=== PATIENT | male | born 1945 | race Caucasian/White ===

== ENCOUNTER → 2024-06-08 | Outpatient (CLI) | payer MEDICARE ==
[2024-06-08 10:59] LABS: African American GFR (CKD) >90 (>60 ml/min/1.73 sqM); Blood Urea Nitrogen 20 mg/dL (9-20); Non-African American GFR(CKD) 86 (>60 ml/min/1.73 sqM)
--- NOTE | 2024-06-08 13:21 | CT ---
EXAMINATION TYPE: CT urogram wo/w con DATE OF EXAM: 06/08/2024 12:44 PM COMPARISON: None CLINICAL INDICATION: Male, 79 years old with history of R31.0 GROSS HEMATURIA; PHH, GROSS HEMATURIA TECHNIQUE: Urogram with imaging of the abdomen and pelvis. Coronal and sagittal reformats were performed. 2D and 3D reconstructions are performed to assist visualization of the urinary tract on a separate workstat ion. Contrast used:100 ML mL of Isovue 370 with IV Contrast, Oral contrast used: None. CT DLP: 1607.0 mGycm, Automated exposure control for dose reduction was used. FINDINGS: LOWER CHEST: The heart is moderately to markedly enlarged for size. Mitral valve device. Moderate cor onary artery atherosclerosis. Bilateral gynecomastia changes. GENITOURINARY: RIGHT KIDNEY AND URETER: No calculi. Mild to moderate hydroureteronephrosis.. No renal mass or other lesions. Right renal cortical cyst measuring 17 mm. No urothelial lesions: no filling defect, dilatio n, stricture or wall thickening. LEFT KIDNEY AND URETER: No calculi. No hydronephrosis or hydroureter. No renal mass or other lesions. No urothelial lesions: no filling defect, dilation, stricture or wall thickening. URINARY BLADDER: Distended there is a eccentric right bladder wall thickening measuring 5.4 x 2.2 cm covering the right ureteral orifice. There is moderate right REPRODUCTIVE: Prostate is enlarged in size measuring 4.6 cm in transverse dimension. ABDOMEN LIVER: Unremarkable GALLBLADDER AND BILE DUCTS: Unremarkable. PANCREAS: Unremarkable. SPLEEN: Unremarkable. ADRENAL GLANDS: Unremarkable. STOMACH AND BOWEL: . No evidence of bowel obstruction. The appendix is normal. Moderate to large amou nt stool in the colon. PERITONEUM: No evidence of pneumoperitoneum, free fluid, or adenopathy. VASCULATURE: Moderate atherosclerotic calcifications are present throughout the abdominal aorta and i ts branches. No evidence of aortic aneurysm. MUSCULOSKELETAL: No acute osseous abnormalities. Mild disc degeneration changes are present throughou t the thoracolumbar spine. LYMPH NODES: No gross evidence for lymphadenopathy. Nonenlarged retroperitoneal lymph nodes are indet erminate specifically no greater than 1.0 cm in short axis lymph nodes are identified. SOFT TISSUE/ABDOMINAL WALL: Unremarkable IMPRESSION: 1. Right posterior lateral bladder wall mass measuring up to 5.4 cm. This mass results in mild to mo derate right hydroureteronephrosis. 2. Moderate to severe cardiomegaly [facility], , 06/08/2024 1:19 PM
== END | disposition home or self-care (01) ==
LOC: RADCTMAIN 10:21 → EEVIPCON 10:21
PROVIDERS: ATTEND Urology
DX: N13.2 Hydronephrosis with renal and ureteral calculous obstruction (principal); R31.0 Gross hematuria; N32.89 Other specified disorders of bladder; I51.7 Cardiomegaly
CPT/HCPCS: 82565; 84520; 74178; 36415; 74400; Q9967

== ENCOUNTER → 2024-07-01 | Day surgery (SDC) | payer MEDICARE ==
--- NOTE | 2024-06-29 20:56 | P.GSHP ---
History of Present Illness H&P Date: 06/29/24 Chief Complaint: Gross hematuria The patient is an 79-year-old white male with a several month history of intermittent gross hematuria. Urine culture shows no evidence of infection. Urine cytology is suspicious. A CT urogram shows a right sided bladder mass with moderate right hydronephrosis. The patient underwent a Watchman procedure on May 26, 2024 and has been advised to remain on aspirin and Plavix for 6 months. - Cardiovascular Cardiovascular: Reports high blood pressure, Reports irregular heart beat - Genitourinary (Male) Genitourinary: Reports hematuria, Denies dysuria, Denies urinary frequency Past Medical History Past Medical History: Atrial Fibrillation, Cancer, Heart Failure, CVA/TIA, Hyperlipidemia, Hypertension, Seizure Disorder, Thyroid Disorder Additional Past Medical History / Comment(s): cva x2 ,bladder cancer?, has watchman, History of Any Multi-Drug Resistant Organisms: None Reported Past Surgical History: Unable to Obtain Additional Past Surgical History / Comment(s): Su cranietomy, hematoma, artery glued, watchman Past Anesthesia/Blood Transfusion Reactions: No Reported Reaction Smoking Status: Former smoker - Past Family History Father Family Medical History: No Reported History Medications and Allergies Home Medications Medication Instructions Recorded Confirmed Type Atorvastatin [Lipitor] 80 mg PO HS 04/07/24 06/29/24 History Docusate Sodium 100 mg PO DAILY 04/07/24 06/29/24 History Pantoprazole [Protonix] 40 mg PO DAILY 04/07/24 06/29/24 History Potassium Chloride ER [K-Dur 20] 20 meq PO BID 04/07/24 06/29/24 History amLODIPine [Norvasc] 10 mg PO DAILY 04/07/24 06/29/24 History levETIRAcetam [Keppra Oral 1,000 mg PO BID 04/07/24 06/29/24 History Solution] Sacubitril/Valsartan [Entresto 24 1 each PO BID tab 04/15/24 06/29/24 Rx mg-26 mg Tablet] Acetaminophen [Tylenol Arthritis] 650 mg PO Q6H PRN 06/29/24 06/29/24 History Aspirin [Children's Aspirin] 81 mg PO DAILY 06/29/24 06/29/24 History Clopidogrel [Plavix] 75 mg PO DAILY 06/29/24 06/29/24 History Ferrous Sulfate [Feosol] 325 mg PO DAILY 06/29/24 06/29/24 History Allergies Allergy/AdvReac Type Severity Reaction Status Date / Time No Known Allergies Allergy Verified 06/28/24 11:51 Surgical - Exam - General well developed, well nourished, no distress - Respiratory normal respiratory effort - Genitourinary normal penis with no external lesions (You), testicles non-tender - Rectum Rectum: normal sphincter tone, no masses, other (Prostate mildly enlarged and smooth) - Psychiatric oriented to time, oriented to person, oriented to place, speech is normal, memory intact Results - Imaging CT scan - abdomen: report reviewed, image reviewed Assessment and Plan (1) Neoplasm of unspecified behavior of bladder Status: Acute Code(s): D49.4 - NEOPLASM OF UNSPECIFIED BEHAVIOR OF BLADDER SNOMED Code(s): 591750214 (2) Unspecified hydronephrosis Status: Acute Code(s): N13.30 - UNSPECIFIED HYDRONEPHROSIS SNOMED Code(s): 29746196 Plan: Cystoscopy, TURBT, possible right retrograde pyelogram, possible right ureteral stent insertion. The procedure has been reviewed in detail with the patient. He has been made aware of potential risks, which include anesthesia, infection, and bladder perforation. There is a significant risk of hematuria, given that the patient cannot be safely taken off aspirin and Plavix per his retail marketing specialist, Dr. Don Steiner.
[~2024-07-01] MED LIST: FUROSEMIDE 10 MG/ML 2 ML VIAL ONE; GLYCOPYRROLATE 0.2 MG/ML 2 ML VIAL ONE; HYDROmorphone 0.5 MG/0.5 ML SYRINGE IVP PRN; LIDOCAINE 1% (10MG/ML) FOR IV START INTRADERMA PRN; LIDOCAINE 1% INJ 10MG/ML (20 ML MDV) ONE; MIDAZOLAM 2 MG/2 ML VIAL IV PRN; NEOSTIGMINE 1 MG/ML 10 ML VIAL ONE; PHENYLEPHRINE 10 MG/ML VIAL ONE; PROPOFOL 10 MG/ML 20 ML VIAL IV ONE; ROCURONIUM 10 MG/ML (5 ML VIAL) IV ONE; SUCCINYLCHOLINE CHLORIDE 200 MG/10 ML VIAL IV ONE; SUGAMMADEX SODIUM 100 MG/ML SYR IV ONE; fentaNYL (PF) 50 MCG/ML 2 ML AMP IVP PRN; fentaNYL (PF) 50 MCG/ML 2 ML AMP ONE
[2024-07-01] MEDS: IV FLUID CONTINUATION 1,000 ML IV ONE (06:52)
[2024-07-01] MEDS: LACTATED RINGERS 1,000 ML IV SCH (07:13)
[2024-07-01] MEDS: DEXAMETHASONE SOD PHOSPHATE 4 MG/ML 1 ML VIAL IV ONE (07:13)
[2024-07-01] MEDS: ONDANSETRON 4 MG/2 ML VIAL IVP ONE (07:13)
[2024-07-01 07:16] LABS: Basophils # (A) 0.07 10*3/uL (0.00-0.10); Eosinophils # (A) 0.21 10*3/uL (0.04-0.35); Eosinophils % (A) 2.9 %; HCT 36.4 % (39.6-50.0); HGB 11.7 g/dL (13.0-17.0); Lymphocytes # (A) 1.27 10*3/uL (0.90-5.00); Lymphocytes % (A) 17.6 %; MCH 29.7 pg (27.0-32.0); MCHC 32.1 g/dL (32.0-37.0); MCV 92.4 fL (80.0-97.0); Monocytes # (A) 0.73 10*3/uL (0.20-1.00); Monocytes % (A) 10.1 %; Neutrophils # (A) 4.89 10*3/uL (1.80-7.70); Neutrophils % (A) 67.8 %; Platelet Count 292 10*3/uL (140-440); RBC 3.94 10*6/uL (4.40-5.60); RDW 15.5 % (11.5-14.5); WBC 7.21 10*3/uL (4.50-10.00)
[2024-07-01] MEDS: ceFAZolin 2 GM in DEXTROSE 5% IN WATER 50 ML IVPB PRN (07:30)
[2024-07-01 07:53] LABS: ALT 13 U/L (4-49); AST 24 U/L (17-59); African American GFR (CKD) 69 (>60 ml/min/1.73 sqM); Alkaline Phosphatase 132 U/L (38-126); Anion Gap 9 mmol/L; Blood Urea Nitrogen 27 mg/dL (9-20); Calcium 9.3 mg/dL (8.4-10.2); Carbon Dioxide 26 mmol/L (22-30); Chloride 105 mmol/L (98-107); Glucose 120 mg/dL (74-99); Non-African American GFR(CKD) 60 (>60 ml/min/1.73 sqM); Potassium 5.2 mmol/L (3.5-5.1); Sodium 140 mmol/L (137-145); Total Bilirubin 0.6 mg/dL (0.2-1.3); Total Protein 6.8 g/dL (6.3-8.2)
[2024-07-01 09:40] VITALS: TEMP 96.8
--- NOTE | 2024-07-01 09:47 | P.OP ---
Date of Procedure: 07/01/24 Preoperative Diagnosis: Gross hematuria, bladder tumor, right hydronephrosis Postoperative Diagnosis: Same Procedure(s) Performed: Cystoscopy, transurethral resection of bladder tumor (large) Anesthesia: JESÚS Surgeon: Jose Johnson Estimated Blood Loss (ml): 50 IV fluids (ml): 700 Pathology: other (Right posterior bladder wall tumor) Condition: stable Disposition: PACU Indications for Procedure: The patient is an 79-year-old white male with a several month history of intermittent gross hematuria. Urine culture shows no evidence of infection. Urine cytology is suspicious. A CT urogram shows a right sided bladder mass with moderate right hydronephrosis. The patient underwent a Watchman procedure on May 26, 2024 and has been advised to remain on aspirin and Plavix for 6 months. He now comes for cystoscopy with resection of bladder tumor. Operative Findings: Large tumor occupying the majority of the right posterior bladder wall, including the right hemitrigone and extending to the right lateral bladder wall. Although the tumor has a papillary appearance, it is likely muscle invasive. 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 The tumor within the diverticulum was partially resected. Description of Procedure: The patient was taken in the operating room and placed in the dorsal lithotomy position, with his legs supported in Pete stirrups. The external genitalia was prepped and draped sterilely. The [place] urethrotome was used to incise the urethra to 25-Macedonian. The 25-Macedonian ACMI resectoscope sheath was introduced into the bladder. The bladder was inspected. The entire bladder was examined, revealing some clot within the bladder. Papillary tumors covered the majority of the right posterior bladder wall, extending to the right lateral bladder wall. The prostate was visually occluded with a trilobar configuration. Tumor reached the vesical neck but did not extend into the prostatic urethra. The left ureteral orifice appeared normal, and clear urine effluxed from it. The right ureteral orifice was obscured by tumor. Using the bipolar cutting loop, the tumors were resected down to the muscle. The resection bed measured 6 to 8 cm in size. The left ureteral orifice was not resected, as there was no tumor adjacent to it. The right ureteral orifice was not identified. Cephalad to the anticipated area of the right ureteral orifice was a large posterior bladder wall diverticulum which contained papillary tumor. The neck of the diverticulum was resected, allowing the resectoscope to be introduced into the neck of the diverticulum. However, it was evident that the diverticulum was quite large, and it was not felt that complete resection could be safely performed. Therefore, the tumor within the diverticulum was cauterized, attaining adequate hemostasis. The remainder of the resection bed showed excellent hemostasis. There was no evidence of bladder perforation. The Fraud[employer] evacuator was used to remove all of the tissue fragments from the bladder. The resected tissue was saved and sent for pathologic examination. A 20-Macedonian Bender catheter was inserted. The return was essentially clear. Lasix 20 mg was given intravenously at the conclusion of the procedure. At the completion of the procedure, the abdomen was noted to be soft and nondistended. The patient tolerated the procedure well and was taken to the recovery room in stable condition.
[2024-07-01 09:48] VITALS: RESP 16
[2024-07-01 11:55] VITALS: BP 168/76; PULSE 68
== END | disposition home or self-care (01) ==
LOC: OR 06:21
PROVIDERS: ATTEND Urology
DX: C67.9 Malignant neoplasm of bladder, unspecified (principal); N13.30 Unspecified hydronephrosis; I48.91 Unspecified atrial fibrillation; I11.0 Hypertensive heart disease with heart failure; I50.9 Heart failure, unspecified; K21.9 Gastro-esophageal reflux disease without esophagitis; E07.9 Disorder of thyroid, unspecified; Z86.73 Personal history of transient ischemic attack (TIA), and cerebral infarction without residual deficits; Z86.69 Personal history of other diseases of the nervous system and sense organs; Z87.891 Personal history of nicotine dependence; Z79.82 Long term (current) use of aspirin; Z79.02 Long term (current) use of antithrombotics/antiplatelets; Z79.899 Other long term (current) drug therapy
CPT/HCPCS: 52240; 80053; 85025; 88307; J0330; J1100; J2710; J0690; J2405; J2003; J3010; J2704; J2371; J1596; J1938

== ENCOUNTER 2024-07-22 11:28 | Emergency (ER) | payer MEDICARE ==
--- NOTE | 2024-07-22 11:53 | ED ---
Male Urogenital HPI - General Source: patient, family, RN notes reviewed Mode of arrival: ambulatory Limitations: no limitations <Venita Penaloza - Last Filed: 07/22/24 16:33> <Harsha Horowitz - Last Filed: 07/23/24 10:02> - General Chief complaint: Urogenital Stated complaint: Urogenital Time Seen by Provider: 07/22/24 11:37 - History of Present Illness Initial comments: Patient is an 79-year-old male with history of recent bladder tumor resection (07/01) with Dr. Johnson presenting for gross hematuria and dysuria for about 3 days. Patient states that since bladder tumor resection on 07/01 he has had int ermittent hematuria but was getting better until Friday when he noticed that he had hematuria as well as dysuria, frequency, and urgency. He reports mild suprapubic pain only to palpation. He denies fever/chills, nausea/vomiting, chest pain, difficulty breathing, flank pain, melena/hematochezia. (Venita Penaloza) - Related Data Home Medications Medication Instructions Recorded Confirmed Atorvastatin [Lipitor] 80 mg PO HS 04/07/24 07/01/24 Docusate Sodium 100 mg PO DAILY 04/07/24 07/01/24 Pantoprazole [Protonix] 40 mg PO DAILY 04/07/24 07/01/24 Potassium Chloride ER [K-Dur 20] 20 meq PO BID 04/07/24 07/01/24 amLODIPine [Norvasc] 10 mg PO DAILY 04/07/24 07/01/24 levETIRAcetam [Keppra Oral 1,000 mg PO BID 04/07/24 07/01/24 Solution] Acetaminophen [Tylenol Arthritis] 650 mg PO Q6H PRN 06/29/24 07/01/24 Aspirin [Children's Aspirin] 81 mg PO DAILY 06/29/24 07/01/24 Clopidogrel [Plavix] 75 mg PO DAILY 06/29/24 07/01/24 Ferrous Sulfate [Feosol] 325 mg PO DAILY 06/29/24 07/01/24 Previous Rx's Medication Instructions Recorded Sacubitril/Valsartan [Entresto 24 1 each PO BID tab 04/15/24 mg-26 mg Tablet] Ciprofloxacin HCl 500 mg PO Q12H 5 Days #10 tab 07/22/24 Allergies Allergy/AdvReac Type Severity Reaction Status Date / Time No Known Allergies Allergy Verified 07/01/24 06:45 Review of Systems ROS Other: All systems not noted in ROS Statement are negative. Constitutional: Denies: fever, chills Respiratory: Denies: cough, dyspnea Cardiovascular: Denies: chest pain Gastrointestinal: Denies: abdominal pain, nausea, vomiting Genitourinary: Reports: urgency, dysuria, frequency, hematuria Neurological: Denies: weakness <Venita Penaloza - Last Filed: 07/22/24 16:33> ROS Other: All systems not noted in ROS Statement are negative. <Harsha Horowitz - Last Filed: 07/23/24 10:02> ROS Statement: Those systems with pertinent positive or pertinent negative responses have been documented in the HPI. Past Medical History Past Medical History: Atrial Fibrillation, Cancer, Heart Failure, CVA/TIA, Hyperlipidemia, Hypertension, Seizure Disorder, Thyroid Disorder Additional Past Medical History / Comment(s): cva x2 ,bladder cancer?, has watchman, History of Any Multi-Drug Resistant Organisms: None Reported Past Surgical History: Unable to Obtain Additional Past Surgical History / Comment(s): Clyman cranietomy, hematoma, artery glued, watchman, bladder surgery Past Anesthesia/Blood Transfusion Reactions: No Reported Reaction Past Psychological History: No Psychological Hx Reported Smoking Status: Former smoker - Past Family History Father Family Medical History: No Reported History <TremaineVenita - Last Filed: 07/22/24 16:33> General Exam Limitations: no limitations General appearance: alert, in no apparent distress Head exam: Present: atraumatic Eye exam: Present: normal appearance ENT exam: Present: mucous membranes moist, normal external ear exam Respiratory exam: Present: normal lung sounds bilaterally. Absent: respiratory distress, wheezes, rales, rhonchi, chest wall tenderness, accessory muscle use Cardiovascular Exam: Present: regular rate, normal rhythm, normal heart sounds. Absent: systolic murmur, diastolic murmur GI/Abdominal exam: Present: soft, tenderness (Mild suprapubic), normal bowel sounds. Absent: distended, guarding, rebound, rigid Extremities exam: Present: normal inspection, full ROM, normal capillary refill Back exam: Absent: CVA tenderness (R), CVA tenderness (L) Neurological exam: Present: alert, oriented X3 Psychiatric exam: Present: normal affect, normal mood Skin exam: Present: warm, dry, intact <Venita Penaloza - Last Filed: 07/22/24 16:33> Course Vital Signs 07/22/24 07/22/24 11:34 15:40 Temperature 97.4 F L 97.5 F L Pulse Rate 92 74 Respiratory 20 18 Rate Blood Pressure 137/75 136/70 O2 Sat by Pulse 99 96 Oximetry Medical Decision Making - Lab Data Result diagrams: 07/22/24 12:17 07/22/24 12:17 <Venita Penaloza - Last Filed: 07/22/24 16:33> - Lab Data Result diagrams: 07/22/24 12:17 07/22/24 12:17 <Harsha Horowitz - Last Filed: 07/23/24 10:02> - Medical Decision Making Was pt. sent in by a medical professional or institution (, PA, CATEGORY DEVELOPMENT MANAGER, urgent care, hospital, or correction...) When possible be specific @ -No Did you speak to anyone other than the patient for history (EMS, parent, family, police, friend...)? What history was obtained from this source @ -Granddaughter(POA) Did you review nursing and triage notes (agree or disagree)? Why? @ -I reviewed and agree with nursing and triage notes Were old charts reviewed (outside hosp., previous admission, EMS record, old EKG, old radiological studies, urgent care reports/EKG's, correction records)? Report findings @ -Surgery records Differential Diagnosis? @ -Nephrolithiasis, UTI, pyelonephritis, hydronephrosis, renal artery embolism, renal vein thrombosis, cystitis. This is not meant to be an all-inclusive list. EKG interpreted by me (3pts min.). @ -As above X-rays interpreted by me (1pt min.). @ -None done CT interpreted by me (1pt min.). @ -None done U/S interpreted by me (1pt. min.). @ -No hydronephrosis seen What testing was considered but not performed or refused? (CT, X-rays, U/S, labs)? Why? @ -None What meds were considered but not given or refused? Why? @ -None Did you discuss the management of the patient with other professionals (professionals i.e. , PA, CATEGORY DEVELOPMENT MANAGER, lab, RT, psych nurse, social insurance analyst, jewelry sales associate, teacher, senior grants officer, foster care case manager)? Give summary @ -No Was smoking cessation discussed for >3mins.? @ -No Was critical care preformed (if so, how long)? @ -No Were there social determinants of health that impacted care today? How? (Homelessness, low income, unemployed, alcoholism, drug addiction, transportation, low edu. Level, literacy, decrease access to med. care, [facility], rehab)? @ -No Was there de-escalation of care discussed even if they declined (Discuss DNR or withdrawal of care, Hospice)? DNR status @ -No What co-morbidities impacted this encounter? (DM, HTN, Smoking, COPD, CAD, Cancer, CVA, ARF, Chemo, Hep., AIDS, mental health diagnosis, sleep apnea, morbid obesity)? @ -None Was patient admitted / discharged? Hospital course, mention meds given and route, prescriptions, significant lab abnormalities, going to OR and other pert inent info. @ -Patient is an 79-year-old male status post bladder tumor resection on 07/01 with hematuria since Friday. He is reporting hematuria, frequency, urgency, intermittent mild suprapubic pain only to palpation.a CBC, CMP, urinalysis, ultrasound kidney/bladder were obtained. CBC showed hemoglobin 10. CMP: Creatinine 1.27, alkaline phosphatase 143. UA with >182 RBC, 140 WBC. Ultrasound kidney/bladder: Mild right hydronephrosis, debris within bladder lumen, no nephrolithiasis. Case discussed with Dr. Johnson, recommendation to start empiric antibiotics for suspected UTI, patient scheduled for outpatient follow-up. Patient discharged home on 5 days ciprofloxacin 500 mg twice daily. Return precautions discussed including but not limited to inability to urinate, fever/chills. Patient verbalizes an understanding. Recommend follow-up with PCP in 1 to 2 days. Undiagnosed new problem with uncertain prognosis? @ -No Drug Therapy requiring intensive monitoring for toxicity (Heparin, Nitro, Insulin, Cardizem)? @ -No Were any procedures done? @ -No Diagnosis/symptom? @ -Hematuria, UTI Acute, or Chronic, or Acute on Chronic? @ -Acute Uncomplicated (without systemic symptoms) or Complicated (systemic symptoms)? @ -Uncomplicated Side effects of treatment? @ -No Exacerbation, Progression, or Severe Exacerbation? @ -No Poses a threat to life or bodily function? How? (Chest pain, [place], [place], pneumonia, PE, COPD, DKA, ARF, appy, cholecystitis, CVA, Diverticulitis, Homicidal, Suici denise, threat to staff... and all critical care pts) @ -No (Venita Penaloza) I personally saw the patient and performed the critical portion of the service. I discussed the patient care with the resident. I directed management, care planning and final disposition of the patient. This includes, but not limited to, review of all lab work, radiological studies, EKG's, consultations, vital signs, and nursing notes. EKG interpreted by me (3pts min.) @None done X-Rays interpreted by me (1 pt min.) @None CT interpreted by me ( 1pt min.) @None U/S interpreted by me (1 pt min.) @Bladder/renal ultrasound positive for mild right-sided hydronephrosis with debris in the bladder lumen which is likely the bleeding that he has been experiencing since his procedure. (Harsha Horowitz) - Lab Data Lab Results 07/22/24 07/22/24 07/22/24 Range/Units 12:17 12:17 12:17 WBC 8.37 (4.50-10.00) 10*3/uL RBC 3.36 L (4.40-5.60) 10*6/uL Hgb 10.0 L D (13.0-17.0) g/dL Hct 30.7 L (39.6-50.0) % MCV 91.4 (80.0-97.0) fL MCH 29.8 (27.0-32.0) pg MCHC 32.6 (32.0-37.0) g/dL Plt Count 312 (140-440) 10*3/uL MPV 10.2 (9.5-12.2) fL Immature Gran % (Auto) 0.5 % Neutrophils % 75.1 % Lymphocytes % 14.5 % Monocytes % 8.8 % Eosinophils % 0.6 % Basophils % 0.5 % Immature Gran # 0.04 (0.00-0.04) 10*3/uL Neutrophils # 6.29 (1.80-7.70) 10*3/uL Lymphocytes # 1.21 (0.90-5.00) 10*3/uL Monocytes # 0.74 (0.20-1.00) 10*3/uL Eosinophils # 0.05 (0.04-0.35) 10*3/uL Basophils # 0.04 (0.00-0.10) 10*3/uL Sodium 139 (137-145) mmol/L Potassium 5.1 (3.5-5.1) mmol/L Chloride 107 (98-107) mmol/L Carbon Dioxide 19 L (22-30) mmol/L Anion Gap 13 mmol/L BUN 33 H (9-20) mg/dL Creatinine 1.27 H (0.66-1.25) mg/dL Est GFR (CKD-EPI)AfAm 61 (>60 ml/min/1.73 sqM) Est GFR (CKD-EPI)NonAf 53 (>60 ml/min/1.73 sqM) Glucose 113 H (74-99) mg/dL Calcium 10.1 (8.4-10.2) mg/dL Total Bilirubin 0.4 (0.2-1.3) mg/dL AST 29 (17-59) U/L ALT 17 (4-49) U/L Alkaline Phosphatase 143 H (38-126) U/L Total Protein 6.5 (6.3-8.2) g/dL Albumin 3.9 (3.5-5.0) g/dL Urine Color Dark Brown Urine Appearance Slightly Cloudy (Clear) Urine RBC >182 H (0-5) /hpf Urine WBC 140 H (0-5) /hpf Amorphous Sediment Occasional H (None) /hpf Disposition Is patient prescribed a controlled substance at d/c from ED?: No Time of Disposition: 15:13 <Venita Penaloza - Last Filed: 07/22/24 16:33> <Harsha Horowitz - Last Filed: 07/23/24 10:02> Clinical Impression: Hematuria, UTI (urinary tract infection) Disposition: HOME SELF-CARE Condition: Stable Instructions (If sedation given, give patient instructions): Urinary Tract Infection in Men (ED) Additional Instructions: Every disease is a spectrum and a small chance still exists that a serious condition could develop, for this reason, please monitor yourself closely for new, changing or worsening symptoms, symptoms that persist beyond 48 hours, fever, inability to tolerate/keep down fluids or your medications, inability to follow up with outpatient providers as instructed and should you experience these symptoms or should you have any further concerns for your wellbeing please return to the ED or call 911 immediately. Your pain can be treated with ibuprofen and acetaminophen. You can take up to 400-600 mg of ibuprofen (Advil, Motrin) 3 times daily (every 8 hours) but can also use lower doses if this relieves your pain. Some people prefer naproxen (Aleve, Naprosyn) which can be taken in doses of 500 mg up to twice a day. Do not take both of these medicines together, and do not combine either with ketorolac (Toradol), meloxicam (Mobic), or indomethacin (Tivorbex). Some people can develop stomach discomfort with higher doses of either ibuprofen or naproxen, if this develops decrease your dose or stop taking it. If you need to take this dose daily for more than a week, please schedule an appointment for re-evaluation with your PCP. Please take these medications with food. You can take up to 1000 mg of acetaminophen (Tylenol) every 6 hours. Be careful as this is included in some medicines like Nyquil, [place], Percocet, Vicodin, STANBACK, Goody's Powders, and Excedrin. You can also use lidocaine patches for topical pain. You can purchase 4% patches over the counter at most drug stores. These can be helpful for pain from your muscles or bones. PLEASE call your primary care physician as soon as possible to arrange / discuss plan for followup appointment. Appointment in the next 1-3 days is strongly encouraged if possible. PLEASE let us know here before you leave if there is anything further we can do to be of any assistance. Take care and feel Better! Prescriptions: Ciprofloxacin HCl 500 mg PO Q12H 5 Days #10 tab Referrals: Nonstaff,Physician [Primary Care Provider] - 1-2 days
[2024-07-22 12:48] LABS: Basophils # (A) 0.04 10*3/uL (0.00-0.10); Basophils % (A) 0.5 %; Eosinophils # (A) 0.05 10*3/uL (0.04-0.35); Eosinophils % (A) 0.6 %; HCT 30.7 % (39.6-50.0); Lymphocytes # (A) 1.21 10*3/uL (0.90-5.00); Lymphocytes % (A) 14.5 %; MCH 29.8 pg (27.0-32.0); MCHC 32.6 g/dL (32.0-37.0); MCV 91.4 fL (80.0-97.0); Mean Platelet Volume 10.2 fL (9.5-12.2); Monocytes # (A) 0.74 10*3/uL (0.20-1.00); Monocytes % (A) 8.8 %; Neutrophils # (A) 6.29 10*3/uL (1.80-7.70); Neutrophils % (A) 75.1 %; Platelet Count 312 10*3/uL (140-440); RBC 3.36 10*6/uL (4.40-5.60); RDW 15.3 % (11.5-14.5); WBC 8.37 10*3/uL (4.50-10.00)
[2024-07-22 12:51] LABS: ALT 17 U/L (4-49); AST 29 U/L (17-59); African American GFR (CKD) 61 (>60 ml/min/1.73 sqM); Albumin 3.9 g/dL (3.5-5.0); Alkaline Phosphatase 143 U/L (38-126); Anion Gap 13 mmol/L; Blood Urea Nitrogen 33 mg/dL (9-20); Calcium 10.1 mg/dL (8.4-10.2); Carbon Dioxide 19 mmol/L (22-30); Chloride 107 mmol/L (98-107); Glucose 113 mg/dL (74-99); Non-African American GFR(CKD) 53 (>60 ml/min/1.73 sqM); Potassium 5.1 mmol/L (3.5-5.1); Sodium 139 mmol/L (137-145); Total Bilirubin 0.4 mg/dL (0.2-1.3); Total Protein 6.5 g/dL (6.3-8.2)
[2024-07-22 13:24] LABS: Amorphous Sediment,Urine Occasional /hpf; RBC,Urine >182 /hpf (0-5); WBC,Urine 140 /hpf (0-5)
[2024-07-22 13:28] LABS: Appearance,Urine Slightly Cloudy (Clear); Color,Urine Dark Brown
--- NOTE | 2024-07-22 13:30 | US ---
EXAMINATION TYPE: US kidneys/renal and bladder DATE OF EXAM: 07/22/2024 COMPARISON: CT: 06/08/24 CLINICAL INDICATION: Male, 79 years old with history of hematuria; hematuria TECHNIQUE: Grayscale imaging of the bilateral kidneys and urinary bladder: FINDINGS: EXAM MEASUREMENTS: Right Kidney: 10.9 x 6.1 x 6.1 cm Left Kidney: 11.1 x 5.9 x 6.0 cm Right Kidney: mild hydronephrosis seen Left Kidney: No hydronephrosis or masses seen Bladder: hypoechoic avascular area seen right posterior bladder measuring 4.7 x 4.6 x 2.3cm Bilateral Jets seen: left jet seen There is no evidence for hydronephrosis at this point in time. No nephrolithiasis is seen. No brad s are identified. The urinary bladder is anechoic. IMPRESSION: 1. Mild right hydronephrosis. Correlate for obstructive uropathy. 2. Debris within the bladder lumen suggested. Consider CT urogram for further evaluation. Correlate with urinalysis.. [facility], , 07/22/2024 1:28 PM
[2024-07-22] MEDS: CIPROFLOXACIN HCL 500 MG TAB PO STA (15:29)
[2024-07-22 15:42] VITALS: BP 136/70; PULSE 74; RESP 18; TEMP 97.5
== END 2024-07-22 15:44 | disposition home or self-care (01) ==
LOC: EC 11:28
DX: N39.0 Urinary tract infection, site not specified (principal); Z86.73 Personal history of transient ischemic attack (TIA), and cerebral infarction without residual deficits; Z87.891 Personal history of nicotine dependence
CPT/HCPCS: 36415; 76770; 80053; 81001; 85025; 87086; 99284